=== PATIENT | male | born 1960 | race African-American/Black ===

== ENCOUNTER 2017-05-22 05:58 | Emergency (ER) | payer MEDICARE, MEDICAID ==
[2017-05-22] MEDS ORDERED: ACETAMINOPHEN 325 MG TABLET PO ONE (06:13)
[2017-05-22] MEDS ORDERED: NORMAL SALINE 1000 ML 1,000 ML IV ONE ×2 (07:13→09:11)
[2017-05-22] MEDS ORDERED: IPRATROPIUM/ALBUTEROL 0.5-2.5 MG/3 ML AMPUL NEB ONE (07:22)
[2017-05-22 07:35] LABS: HEMATOCRIT 44.4 % (37.9-51.0); HEMOGLOBIN 14.9 g/dL (13.5-17.0); HGB HCT DIFFERENCE 0.3; MEAN CORPUSCULAR HEMOGLOBIN 28.1 pg (27.0-33.4); MEAN CORPUSCULAR HGB CONC 33.7 g/dL (32.0-36.0); MEAN CORPUSCULAR VOLUME 84 fl (80-97); RED BLOOD COUNT 5.32 10^6/uL (4.35-5.55); RED CELL DISTRIBUTION WIDTH 13.8 % (11.5-14.0); WHITE BLOOD COUNT 12.9 10^3/uL (4.0-10.5)
[2017-05-22 07:47] LABS: ALANINE AMINOTRANSFERASE 29 U/L (21-72); ALBUMIN 4.2 g/dL (3.5-5.0); ALKALINE PHOSPHATASE 74 U/L (38-126); ANION GAP 12 (5-19); ASPARTATE AMINO TRANSFERASE 23 U/L (17-59); BILIRUBIN,DIRECT 0.3 mg/dL (0.0-0.4); BILIRUBIN,TOTAL 0.4 mg/dL (0.2-1.3); BLOOD UREA NITROGEN 11 mg/dL (7-20); CALCIUM 9.4 mg/dL (8.4-10.2); CARBON DIOXIDE 26 mmol/L (22-30); CHLORIDE 106 mmol/L (98-107); CREATINE KINASE 471 U/L (55-170); CREATININE RESULT 1.07 mg/dL (0.52-1.25); GLUCOSE 102 mg/dL (75-110); POTASSIUM 3.8 mmol/L (3.6-5.0); SODIUM 143.8 mmol/L (137-145); TOTAL PROTEIN 6.5 g/dL (6.3-8.2)
[2017-05-22 07:59] LABS: CREATINE KINASE MB 0.96 ng/mL (<4.55)
--- NOTE | 2017-05-22 08:03 | RADIOLOGY REPORT (SQ) ---
EXAM DESCRIPTION: CHEST PA/LAT COMPLETED DATE/TIME: 05/22/2017 7:55 am REASON FOR STUDY: fever, shortness of breath. COMPARISON: None. EXAM PARAMETERS: NUMBER OF VIEWS: two views TECHNIQUE: Digital Frontal and Lateral radiographic views of the chest acquired. RADIATION DOSE: NA LIMITATIONS: Monitoring wires are overlying the patient's chest. FINDINGS: LUNGS AND PLEURA: Mild bibasilar atelectasis. No pleural effusion or pneumothorax. MEDIASTINUM AND HILAR STRUCTURES: No masses or contour abnormalities. HEART AND VASCULAR STRUCTURES: Heart normal size. No evidence for failure. BONES: Degenerative changes in the spine. HARDWARE: None in the chest. IMPRESSION: Mild bibasilar atelectasis. TECHNICAL DOCUMENTATION: JOB ID: [id number] [employer]- All Rights Reserved
[2017-05-22 08:04] LABS: TROPONIN I < 0.012 ng/mL
[2017-05-22 08:09] LABS: BASOPHILS % (MANUAL) 1 % (0-2); EOSINOPHILS % (MANUAL) 2 % (0-6); LYMPHOCYTES % (MANUAL) 1 % (13-45); TOTAL CELLS COUNTED 100
[2017-05-22 08:13] LABS: HYPOCHROMASIA SLIGHT
[2017-05-22 08:55] LABS: APPEARANCE,URINE CLEAR; BILIRUBIN,URINE NEGATIVE (NEGATIVE); GLUCOSE, URINE NEGATIVE (NEGATIVE); KETONES,URINE NEGATIVE (NEGATIVE); LEUKOCYTE ESTERASE,URINE NEGATIVE (NEGATIVE); NITRITE,URINE NEGATIVE (NEGATIVE); PROTEIN,URINE NEGATIVE (NEGATIVE); URINE SPECIFIC GRAVITY 1.008; UROBILINOGEN,URINE NEGATIVE mg/dL (<2.0)
[2017-05-22] MEDS ORDERED: KETOROLAC TROMETHAMINE INJ/PF 30 MG/1 ML SDV IV ONE (09:10)
[2017-05-22] MEDS ORDERED: ALBUTEROL SULFATE 0.083% NEB 2.5 MG/3 ML AMPUL NEB ONE (09:10)
[2017-05-22] MEDS ORDERED: METHYLPREDNISOLONE INJ 125 MG/2 ML SDV IV ONE (09:10)
[2017-05-22] MEDS ORDERED: AZITHROMYCIN 250 MG TABLET PO ONE (10:11)
[2017-05-22] MEDS ORDERED: CEFTRIAXONE 1 GM/D5W RTU 1 GM/50 ML RTUPB IV ONE (10:11)
--- NOTE | 2017-05-22 10:39 | ER Document Report ---
ED General - General Chief Complaint: Fever Stated Complaint: FEVER/ DIFFICULTY BREATHING Time Seen by Provider: 05/22/17 07:12 TRAVEL OUTSIDE OF THE [place] IN LAST 30 DAYS: No - HPI Patient complains to provider of: Shortness of breath Notes: Patient has a history of tobacco use coming in for fever and shortness of breath. Patient denies any recent antibiotics or recent travel. Patient resting states diffuse pains arthralgias myalgias states has not tried any medications at home. Patient states he has continued to smoke until he became sick 3 days ago and since that time is stop smoking. Denies any other past medical history. Denies chest pain abdominal pain nausea vomiting diarrhea states positive for fevers chills or night sweats. Patient coughing nonproductive - Related Data Allergies/Adverse Reactions: No Known Allergies Allergy (Verified 05/22/17 09:55) Past Medical History - Social History Smoking Status: Current Every Day Smoker Chew tobacco use (# tins/day): No Frequency of alcohol use: None Drug Abuse: None Family History: Reviewed & Not Pertinent Patient has suicidal ideation: No Patient has homicidal ideation: No - Past Medical History Cardiac Medical History: Reports: Hx Hypertension Renal/ Medical History: Denies: Hx Peritoneal Dialysis Surgical Hx: Negative Review of Systems - Review of Systems Constitutional: No symptoms reported EENT: No symptoms reported Cardiovascular: No symptoms reported Respiratory: Cough, Short of breath Gastrointestinal: No symptoms reported Genitourinary: No symptoms reported Male Genitourinary: No symptoms reported Musculoskeletal: No symptoms reported Skin: No symptoms reported Hematologic/Lymphatic: No symptoms reported Neurological/Psychological: No symptoms reported -: Yes All other systems reviewed and negative Physical Exam - Vital signs Vitals: Resp Pulse Ox 22 H 97 05/22/17 07:03 05/22/17 07:03 Interpretation: Normal - General General appearance: Appears well, Alert - HEENT Head: Normocephalic, Atraumatic Eyes: Normal Pupils: PERRL - Respiratory Respiratory status: No respiratory distress Chest status: Nontender Breath sounds: Rhonchi, Wheezing Chest palpation: Normal - Cardiovascular Rhythm: Regular Heart sounds: Normal auscultation Murmur: No - Abdominal Inspection: Normal Distension: No distension Bowel sounds: Normal Tenderness: Nontender Organomegaly: No organomegaly - Back Back: Normal, Nontender - Extremities General upper extremity: Normal inspection, Nontender, Normal color, Normal ROM , Normal temperature General lower extremity: Normal inspection, Nontender, Normal color, Normal ROM , Normal temperature, Normal weight bearing. No: Shelton's sign - Neurological Neuro grossly intact: Yes Cognition: Normal Orientation: AAOx4 Harrison Coma Scale Eye Opening: Spontaneous Harrison Coma Scale Verbal: Oriented [place] Coma Scale Motor: Obeys Commands [place] Coma Scale Total: 15 Speech: Normal Motor strength normal: LUE, RUE, LLE, RLE Sensory: Normal - Psychological Associated symptoms: Normal affect, Normal mood - Skin Skin Temperature: Warm Skin Moisture: Dry Skin Color: Normal Course - Re-evaluation Re-evalutation: 05/22/17 14:53 Patient resting better after medications and Toradol. Patient was able to ambulate around the ER with no signs of hypoxia. Chest x-ray was read basilar atelectasis however on examination more consistent with possible early pneumonia. We will start the patient on azithromycin. Patient was also given a dose of Rocephin here also continue treatment bronchodilators and steroids the patient has a significant history of smoking. Patient was educated to stop smoking will discharge patient home patient is to return to the ER if symptoms worsen. - Vital Signs Vital signs: Temp Pulse Resp BP Pulse Ox 98.2 F 29 H 151/82 H 95 05/22/17 12:20 05/22/17 12:20 05/22/17 12:20 05/22/17 12:20 - Laboratory Result Diagrams: 05/22/17 07:00 05/22/17 07:00 Laboratory results interpreted by me: 05/22/17 05/22/17 07:00 07:00 WBC 12.9 H Seg Neuts % (Manual) 86 H Lymphocytes % (Manual) 1 L Abs Neuts (Manual) 11.1 H Abs Lymphs (Manual) 0.3 L Creatine Kinase 471 H Discharge - Discharge Clinical Impression: Tobacco abuse Pneumonia Qualifiers: Pneumonia type: due to unspecified organism Laterality: unspecified laterality Lung location: lower lobe of lung Qualified Code(s): J18.1 - Lobar pneumonia, unspecified organism Fever Qualifiers: Fever type: unspecified Qualified Code(s): R50.9 - Fever, unspecified Condition: Good Disposition: HOME, SELF-CARE Instructions: Acetaminophen, Fever ([facility]), Use of [id number]-[id number]-Hproqyl Ibuprofen ( [facility]), Ibuprofen (General) ([facility]), Pneumonia ([facility]) Additional Instructions: Follow-up with your primary care physician. Return to the ER symptoms worsen. Take medications as prescribed. Please stop smoking Use your inhaler or nebulizer 2 puffs or 1 treatment every 4 hours. Please use the incentive spirometer given to you here in ER 10 deep breaths during every TV commercial or at least every hour. Prescriptions: Albuterol Sulfate [Albuterol Sulfate 2.5mg/3 mL] 2.5 mg IH Q4 #30 ml Azithromycin [Zithromax] 250 mg PO DAILY #5 tablet Prednisone [Deltasone] 60 mg PO DAILY #24 tablet Forms: Smoking Cessation Education, Return to Work
[2017-05-22] MEDS ORDERED: ALBUTEROL SULFATE HFA (90 MCG/PUFF) 8 GM MDI (1 MDI/ER DISP) IH ONE (11:02)
[2017-05-22 12:27] VITALS: BP 151/82
--- NOTE | 2017-05-22 21:26 | EKG REPORT ---
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
== END 2017-05-22 12:27 | disposition home or self-care (01) ==
LOC: ER 05:58
DX: J18.1 Lobar pneumonia, unspecified organism (principal); R50.9 Fever, unspecified; F17.200 Nicotine dependence, unspecified, uncomplicated
CPT/HCPCS: 93005; 94640 ×2; 99284; 96361; 96375; 96365; 36415; 82553; 82550; 85025; 80053; 81001; 84484; 87804; 71020; 93010; A9270 ×4; J2930; J1885; J7030; J0696; J3490; J7620